=== PATIENT | female | born 1990 | race Caucasian/White ===

== ENCOUNTER 2017-03-12 12:47 | Emergency (ER) | payer SELFPAY ==
--- NOTE | 2017-03-12 15:44 | ED CLINICAL REPORT ---
Clinical Report - Physicians/Mid Levels [facility] [address] [place] [address] 03/12/2017 12:47 Patient: LOLI MADRID Time Seen: 13:19 Mar 12 2017. Arrived- By private vehicle. Historian- patient. HISTORY OF PRESENT ILLNESS Chief Complaint: PELVIC PAIN. This started last night and still present. The symptoms are described as mild. The patient has had pelvic pain. No vaginal discharge. She has had pain with urination and urgency of urination. The patient has had urinary frequency. Last normal menstrual period- jan 24. (patient with symptoms of dysuria, urgency and frequency since last night. Reports pelvic cramping since last night. Reports vaginal bleeding and spotting today. Patient is late on her menses, last menstrual period was January 24. Patient has not taken a home . Previous .). REVIEW OF SYSTEMS No nausea or headache. All systems otherwise negative, except as recorded above. PAST HISTORY Problems: Eczema. Asthma. Additional Surgeries: no known surgeries. Medications: Benadryl Oral. Allergies: Clindamycin.(vomiting). SOCIAL HISTORY Smoker- current status unknown. Alcohol use. No drug use. ADDITIONAL NOTES The nursing notes have been reviewed. PHYSICAL EXAM Vital Signs: 03/12/2017 13:03 BP: 103/50. HR: 96. RR: 18. O2 saturation: 96%. Temp: 98.1 F. Pain level now: 7/10. Appearance: Alert. HEENT: Normal external inspection. ENT: No hearing deficit. Neck: Neck supple. No lymphadenopathy. CVS: Heart sounds normal. Rhythm normal. Respiratory: No respiratory distress. Breath sounds normal. Abdomen: Soft and nontender. Bowel sounds normal. No abdominal tenderness. The bowel sounds are not abnormal. : A moderate amount of thick and white vaginal discharge present. No tenderness present on bimanual exam. No tenderness with movement of the cervix. (chaperoned with Shahrzad FOLEY). Skin: Skin warm. Neuro: Oriented X 3. LABS, X-RAYS, AND EKG Laboratory Tests: UA-Culture if indicated: (NICOLA: 03/12/2017 13:05) ( MsgRcvd 03/12/2017 13:49) Final results Test Result Flag Units (Reference) URINE COLOR YELLOW URINE APPEARANCE CLOUDY URINE GLUCOSE NEGATIVE (NEGATIVE) URINE BILIRUBIN ICTOTEST NEGATIVE (NEGATIVE) URINE KETONE 1+ (NEGATIVE) URINE SPECIFIC GRAVITY >= 1.030 (1.010-1.030) URINE PH 6.0 (5.0-8.0) URINE PROTEIN 3+ (NEGATIVE) URINE UROBILINOGEN 0.2 EU/dL (0.2-1.0) URINE NITRITE POSITIVE (NEGATIVE) URINE BLOOD 3+ (NEGATIVE) URINE LEUK ESTERASE TRACE (NEGATIVE) URINE RBC >100 rbc/hpf (0-1) URINE WBC >100 wbc/hpf (0-1) URINE EPITHELIAL CELLS 10-15 EPI/hpf (0-5) URINE BACTERIA FEW (1+) (NONE SEEN) URINE COMMENT CULTURE INDICATED URINE CULTURES ARE SET-UP BASED ON THE FOLLOWING CRITERIA:POSITIVE NITRITEPOSITIVE LEUKOCYTE ESTERASEGREATER THAN 10 WHITE BLOOD CELLSMODERATE (2+) OR GREATER BACTERIA Urine: (NICOLA: 03/12/2017 13:05) ( [facility] 03/12/2017 13:43) Final results Test Result Flag Units (Reference) URINE POSITIVE CBC w Diff: (NICOLA: 03/12/2017 13:47) ( [facility] 03/12/2017 14:24) Final results Test Result Flag Units (Reference) WHITE BLOOD COUNT 12.6 H K/uL (4.5-11.5) RED BLOOD COUNT 4.32 M/uL (4.00-5.20) HEMOGLOBIN 12.8 gm/dL (12.0-16.0) HEMATOCRIT 38.3 % (36.0-46.0) MEAN CELL VOLUME 89 fL (80-100) MEAN CORPUSCULAR HGB 30 pg (26-34) MEAN CORPUSCULAR HGB CONC 33 g/dL (31-37) RED CELL DISTRIBUTION WIDTH 14.3 % (11.6-14.8) PLATELET COUNT 316 K/uL (150-400) NEUTROPHIL % 81.3 H % (50-75) LYMPH % 11.1 L % (25-40) MONO % 6.0 % (3-14) EOSINOPHIL % 1.3 % (0-4) BASOPHIL % 0.3 % (0-2) Serum Quantitative: (NICOLA: 03/12/2017 14:10) ( DegRcvd 03/12/2017 14:53) Final results Test Result Flag Units (Reference) BETA HCG, QUANTITATIVE 21487 mIU/mL REFERENCE RANGE:Adult Males: <2 mIU/mLNon- Females: <6 mIU/mL Females:Approximate Approximate hCGGestational Age Range (mIU/mL) 0-1 week 0-501-2 weeks 40-3002-3 weeks 100-45692-9 weeks 500-80486-6 months 5,000-200,0002-3 months 10,000-100,0002nd trimester 3,000-50,0003rd trimester 1,000-50,000 Wet Prep: (NICOLA: 03/12/2017 14:30) ( [facility] 03/12/2017 14:46) Final results SPECIMEN DESCRIPTION: C Test Result Flag Units (Reference) WET MOUNT CLUE CELLS:: NONE EPITHELIAL CELLS: 3+ -- SOURCE?: CERVIX WHITE BLOOD CELLS: FEW TRICHOMONAS:: NONE -- YEAST:: NONE . PROGRESS AND PROCEDURES Course of Care: Patient with positive test, she was informed of such, and after pelvic exam was informed that an ultrasound was pending, patient departed from emergency department prior to ultrasound, without informing the staff. Can not exclude ecotpic, although less likely, molar , or other, as complete work up not done in ER. 03/12/2017 13:03 BP: 103/50. HR: 96. RR: 18. O2 saturation: 96%. Temp: 98.1 F. Pain level now: 04/23. Patient is stable. Patient/family counseled. CLINICAL IMPRESSION Vaginal Discharge Pelvic Pain. INSTRUCTIONS Follow-up: Follow up contact number. (Electronically signed by Enriqueta Lin P.A.-C 03/12/2017 16:54)
--- NOTE | 2017-03-12 15:44 | ED NURSING NOTES ---
Clinical Report - Nurses [facility] [address] [place] [address] 03/12/2017 12:47 Patient: LOLI MADRID TRIAGE Triage time 13:03. Acuity: LEVEL 4. Chief Complaint: VAGINAL BLEED and PAINFUL URINATION, URGENCY and FREQUENCY. Alert. No acute distress. OSCAR COMA SCORE: Oscar Coma Scale: 15- eyes open spontaneously (4); best verbal response- oriented x 4 (5); best motor response- obeys commands (6). --13:08 Shannan Shultz R.N. 13:03 03/12/17. BP: 103/50. HR: 96. RR: 18. O2 saturation: 96% on room air. Temp: 98.1 F. Pain level now: 04/23. --13:08 Shannan Shultz R.N. Weight: 54.4 kg stated. Height/Length: 63 inches Per Patient. BMI: 21.2. --13:05 Shannan Shultz R.N. Medications Benadryl Oral. --13:04 Shannan Shultz R.N. Medication/allergy information source: the patient. --13:08 Shannan Shultz R.N. Allergies Clindamycin.(vomiting) --13:04 Shannan Shultz R.N. History Arrived by private vehicle. Historian: patient. Accompanied by friend. Primary physician (none). This started last night. PAST MEDICAL HX: Last normal menstrual period- January. SOCIAL HX: Heavy tobacco smoker- less than 1 pack per day. Occasional alcohol use. History of drug use: marijuana. FALL RISK ASSESSMENT: Fall risk assessment completed. No fall risk identified. FUNCTIONAL ASSESSMENT: Functional assessment: no impairments noted. LEARNING NEEDS ASSESSMENT: The learning needs assessment revealed no barriers. --13:08 Shannan Shultz R.N. PROBLEMS: Eczema. Asthma. --13:05 Shannan Shultz R.N. ADDITIONAL SURGERIES: no known surgeries. Assessment GENERAL / NEURO / PSYCH: Alert. Oriented X 4. Appears in no acute distress. Patient appears calm and cooperative. RESPIRATORY: Respirations not labored. SKIN: Skin is warm and dry. --13:08 Shannan Shultz R.N. Interventions ID band on patient. To treatment room. --13:08 Shannan Shultz R.N. PHYSICAL ASSESSMENT 13:11 03/12/17. Ambulatory to room. Patient gowned. GENERAL / NEURO / PSYCH: Alert. Oriented X 4. Appears in no acute distress. RESPIRATORY: Respirations not labored. SKIN: Skin is warm and dry. --13:11 Shannan Shultz R.N. NURSING PROGRESS NOTES 13:12 03/12/17. Patient gowned. Head of bed elevated. Call light placed in reach. Side rails up x 1. Bed placed in lowest position. Brakes of bed on. --13:12 Shannan Shultz R.N. 13:12 03/12/17. :patient confirmed. Clean catch urine collected; sample sent to lab. Specimen labeled in the presence of the patient. --13:12 Shannan Shultz R.N. 13:46 POSITIVE per Lab. --13:46 Shannan Shultz R.N. 14:30. PELVIC EXAM: Pelvic exam performed by PA. Assisted by one nurse. Procedure: speculum and bimanual exam. Specimens collected and sent to lab: GC, chlamydia and wet prep. Status post-procedure: she was stable. Total time of assist / procedure: (5 min). ( specimens labeled in front of pt and sent to lab. pt tolerated exam well.). --14:34 Shahrzad Georges R.N. ( Pt. not in room. paged overhead.). --15:35 Jennifer Brasher, ER Tech1. DISPOSITION / DISCHARGE <<STRICKEN ENTRY-- Departure time: 1645. Condition at departure: stable. No learning barriers present. Discharge instructions provided and reviewed with the patient. Work note given. Patient verbalized understanding. Written instructions provided in Vietnamese. The patient was discharged home and unaccompanied at time of discharge. She left the Emergency Department ambulatory and via private vehicle. FALL RISK ASSESSMENT: Fall risk assessment completed. No fall risk identified. --17:28 Shannan Shultz R.N. --END STRIKE>> Charted On Wrong Patient --17:29 Shannan Shultz R.N. <<STRICKEN ENTRY-- 16:45 03/12/17. BP: 144/91. HR: 97. RR: 17. O2 saturation: 100% on room air. Pain level now: 02/21. --17:28 Shannan Shultz R.N. --END STRIKE>> Charted on wrong patient. --17:28 Shannan Shultz R.N. Departure time: 1535. The patient left the Emergency Department without completion of treatment. Gown found on bed. Patient left without signing form prior to leaving. --17:30 Shannan Shultz R.N. Locked/Released at 03/12/2017 17:31 by Shannan Shultz R.N.
--- NOTE | 2017-03-12 15:44 | ED ORDER SUMMARY ---
..... Patient: LOLI MADRID OrderSheet [facility] VisitID: [id number] [address] [place] [address] 26y, F Registration Date/Time: 03/12/2017 ORDER SHEET Weight: 54.4 kg (stated) Allergies: Clindamycin GENERAL ORDERS: Pelvic Exam Setup (13:19 03/12/2017 EKoroleva P.A.-C) (Ack 13:24 LNations ER Tech1) UA-Culture if indicated Urgent (13:23 03/12/2017 EKoroleva P.A.-C) (Ack 13:24 LNations ER Tech1) (14:27 ALawrence ER Tech1) Urine Urgent (13:23 03/12/2017 EKoroleva P.A.-C) (Ack 13:24 LNations ER Tech1) (14:27 ALawrence ER Tech1) Wet Prep (Cervix) (c) Urgent (13:39 03/12/2017 EKoroleva P.A.-C) (Ack 13:41 LNations ER Tech1) GC/Chlamydia (Cervix) (c) Urgent (13:39 03/12/2017 EKoroleva P.A.-C) (Ack 13:41 LNations ER Tech1) Type & Rh Urgent (13:47 03/12/2017 EKoroleva P.A.-C) (Ack 13:51 LNations ER Tech1) (14:25 ALawrence ER Tech1) CBC w Diff Urgent (13:47 03/12/2017 EKoroleva P.A.-C) (Ack 13:51 LNations ER Tech1) (14:25 ALawrence ER Tech1) Serum Quantitative Urgent (13:47 03/12/2017 EKoroleva P.A.-C) (Ack 13:51 LNations ER Tech1) (14:25 ALawrence ER Tech1) US OB 1st Trimester w Transvag (01/24/17) Urgent (13:47 03/12/2017 EKoroleva P.A.-C) (Ack 13:51 LNations ER Tech1) MEDICATION ORDERS: IV FLUIDS: ORDER SHEET NOTES: [Electronically signed by Enriqueta Lin P.A.-C (16:54 03/12/2017)] [Electronically signed by Shannan Shultz R.N. (17:31 03/12/2017)] [Electronically locked/signed by Shannan Shultz R.N. (17:31 03/12/2017)]
--- NOTE | 2017-03-12 15:44 | ED CLINICAL REPORT ---
Clinical Report - Physicians/Mid Levels [facility] [address] [place] [address] 03/12/2017 12:47 Patient: LOLI MADRID Time Seen: 13:19 Mar 12 2017. Arrived- By private vehicle. Historian- patient. HISTORY OF PRESENT ILLNESS Chief Complaint: PELVIC PAIN. This started last night and still present. The symptoms are described as mild. The patient has had pelvic pain. No vaginal discharge. She has had pain with urination and urgency of urination. The patient has had urinary frequency. Last normal menstrual period- jan 24. (patient with symptoms of dysuria, urgency and frequency since last night. Reports pelvic cramping since last night. Reports vaginal bleeding and spotting today. Patient is late on her menses, last menstrual period was January 24. Patient has not taken a home . Previous .). REVIEW OF SYSTEMS No nausea or headache. All systems otherwise negative, except as recorded above. PAST HISTORY Problems: Eczema. Asthma. Additional Surgeries: no known surgeries. Medications: Benadryl Oral. Allergies: Clindamycin.(vomiting). SOCIAL HISTORY Smoker- current status unknown. Alcohol use. No drug use. ADDITIONAL NOTES The nursing notes have been reviewed. PHYSICAL EXAM Vital Signs: 03/12/2017 13:03 BP: 103/50. HR: 96. RR: 18. O2 saturation: 96%. Temp: 98.1 F. Pain level now: 7/10. Appearance: Alert. HEENT: Normal external inspection. ENT: No hearing deficit. Neck: Neck supple. No lymphadenopathy. CVS: Heart sounds normal. Rhythm normal. Respiratory: No respiratory distress. Breath sounds normal. Abdomen: Soft and nontender. Bowel sounds normal. No abdominal tenderness. The bowel sounds are not abnormal. : A moderate amount of thick and white vaginal discharge present. No tenderness present on bimanual exam. No tenderness with movement of the cervix. (chaperoned with Shahrzad FOLEY). Skin: Skin warm. Neuro: Oriented X 3. LABS, X-RAYS, AND EKG Laboratory Tests: UA-Culture if indicated: (NICOLA: 03/12/2017 13:05) ( MsgRcvd 03/12/2017 13:49) Final results Test Result Flag Units (Reference) URINE COLOR YELLOW URINE APPEARANCE CLOUDY URINE GLUCOSE NEGATIVE (NEGATIVE) URINE BILIRUBIN ICTOTEST NEGATIVE (NEGATIVE) URINE KETONE 1+ (NEGATIVE) URINE SPECIFIC GRAVITY >= 1.030 (1.010-1.030) URINE PH 6.0 (5.0-8.0) URINE PROTEIN 3+ (NEGATIVE) URINE UROBILINOGEN 0.2 EU/dL (0.2-1.0) URINE NITRITE POSITIVE (NEGATIVE) URINE BLOOD 3+ (NEGATIVE) URINE LEUK ESTERASE TRACE (NEGATIVE) URINE RBC >100 rbc/hpf (0-1) URINE WBC >100 wbc/hpf (0-1) URINE EPITHELIAL CELLS 10-15 EPI/hpf (0-5) URINE BACTERIA FEW (1+) (NONE SEEN) URINE COMMENT CULTURE INDICATED URINE CULTURES ARE SET-UP BASED ON THE FOLLOWING CRITERIA:POSITIVE NITRITEPOSITIVE LEUKOCYTE ESTERASEGREATER THAN 10 WHITE BLOOD CELLSMODERATE (2+) OR GREATER BACTERIA Urine: (NICOLA: 03/12/2017 13:05) ( [facility] 03/12/2017 13:43) Final results Test Result Flag Units (Reference) URINE POSITIVE CBC w Diff: (NICOLA: 03/12/2017 13:47) ( [facility] 03/12/2017 14:24) Final results Test Result Flag Units (Reference) WHITE BLOOD COUNT 12.6 H K/uL (4.5-11.5) RED BLOOD COUNT 4.32 M/uL (4.00-5.20) HEMOGLOBIN 12.8 gm/dL (12.0-16.0) HEMATOCRIT 38.3 % (36.0-46.0) MEAN CELL VOLUME 89 fL (80-100) MEAN CORPUSCULAR HGB 30 pg (26-34) MEAN CORPUSCULAR HGB CONC 33 g/dL (31-37) RED CELL DISTRIBUTION WIDTH 14.3 % (11.6-14.8) PLATELET COUNT 316 K/uL (150-400) NEUTROPHIL % 81.3 H % (50-75) LYMPH % 11.1 L % (25-40) MONO % 6.0 % (3-14) EOSINOPHIL % 1.3 % (0-4) BASOPHIL % 0.3 % (0-2) Serum Quantitative: (NICOLA: 03/12/2017 14:10) ( PagRcvd 03/12/2017 14:53) Final results Test Result Flag Units (Reference) BETA HCG, QUANTITATIVE 30061 mIU/mL REFERENCE RANGE:Adult Males: <2 mIU/mLNon- Females: <6 mIU/mL Females:Approximate Approximate hCGGestational Age Range (mIU/mL) 0-1 week 0-501-2 weeks 40-3002-3 weeks 100-06793-1 weeks 500-07620-2 months 5,000-200,0002-3 months 10,000-100,0002nd trimester 3,000-50,0003rd trimester 1,000-50,000 Wet Prep: (NICOLA: 03/12/2017 14:30) ( [facility] 03/12/2017 14:46) Final results SPECIMEN DESCRIPTION: C Test Result Flag Units (Reference) WET MOUNT CLUE CELLS:: NONE EPITHELIAL CELLS: 3+ -- SOURCE?: CERVIX WHITE BLOOD CELLS: FEW TRICHOMONAS:: NONE -- YEAST:: NONE . PROGRESS AND PROCEDURES Course of Care: Patient with positive test, she was informed of such, and after pelvic exam was informed that an ultrasound was pending, patient departed from emergency department prior to ultrasound, without informing the staff. Can not exclude ecotpic, although less likely, molar , or other, as complete work up not done in ER. 03/12/2017 13:03 BP: 103/50. HR: 96. RR: 18. O2 saturation: 96%. Temp: 98.1 F. Pain level now: 04/23. Patient is stable. Patient/family counseled. CLINICAL IMPRESSION Vaginal Discharge Pelvic Pain. INSTRUCTIONS Follow-up: Follow up contact number. (Electronically signed by Enriqueta Lin P.A.-C 03/12/2017 16:54)
--- NOTE | 2017-03-12 15:44 | ED ORDER SUMMARY ---
..... Patient: LOLI MADRID OrderSheet [facility] VisitID: [id number] [address] [place] [address] 26y, F Registration Date/Time: 03/12/2017 ORDER SHEET Weight: 54.4 kg (stated) Allergies: Clindamycin GENERAL ORDERS: Pelvic Exam Setup (13:19 03/12/2017 EKoroleva P.A.-C) (Ack 13:24 LNations ER Tech1) UA-Culture if indicated Urgent (13:23 03/12/2017 EKoroleva P.A.-C) (Ack 13:24 LNations ER Tech1) (14:27 ALawrence ER Tech1) Urine Urgent (13:23 03/12/2017 EKoroleva P.A.-C) (Ack 13:24 LNations ER Tech1) (14:27 ALawrence ER Tech1) Wet Prep (Cervix) (c) Urgent (13:39 03/12/2017 EKoroleva P.A.-C) (Ack 13:41 LNations ER Tech1) GC/Chlamydia (Cervix) (c) Urgent (13:39 03/12/2017 EKoroleva P.A.-C) (Ack 13:41 LNations ER Tech1) Type & Rh Urgent (13:47 03/12/2017 EKoroleva P.A.-C) (Ack 13:51 LNations ER Tech1) (14:25 ALawrence ER Tech1) CBC w Diff Urgent (13:47 03/12/2017 EKoroleva P.A.-C) (Ack 13:51 LNations ER Tech1) (14:25 ALawrence ER Tech1) Serum Quantitative Urgent (13:47 03/12/2017 EKoroleva P.A.-C) (Ack 13:51 LNations ER Tech1) (14:25 ALawrence ER Tech1) US OB 1st Trimester w Transvag (01/24/17) Urgent (13:47 03/12/2017 EKoroleva P.A.-C) (Ack 13:51 LNations ER Tech1) MEDICATION ORDERS: IV FLUIDS: ORDER SHEET NOTES: [Electronically signed by Enriqueta Lin P.A.-C (16:54 03/12/2017)] [Electronically signed by Shannan Shultz R.N. (17:31 03/12/2017)] [Electronically locked/signed by Shannan Shultz R.N. (17:31 03/12/2017)]
--- NOTE | 2017-03-12 17:31 | ED DISCHARGE INSTRUCTIONS ---
Patient: LOLI MADRID General Instructions [facility] VisitID: [id number] [address] [place] [address] 26y, F Registration Date/Time: 03/12/2017 Vaginal Discharge Pelvic Pain. INSTRUCTIONS Follow-up: Follow up contact number. (Electronically signed by Enriqueta Lin P.A.-C 03/12/2017 16:54)
--- NOTE | 2017-03-12 17:31 | ED MED RECONCILIATION SUMMARY ---
Patient: LOLI MADRID Medication Reconciliation Report [facility] VisitID: [id number] [address] [place] [address] 26y, F Registration Date/Time: 03/12/2017 Weight: 54.4 kg Height/Length: 63 in. BMI: 21.3 ALLERGIES: Clindamycin The patient's Home Medications are listed below: THE FOLLOWING MEDICATIONS NEED TO BE RECONCILED: Benadryl Oral The source(s) of the original Home Medication information: patient The following Medications were given to the patient in the Emergency Department: None. The following Medications were prescribed to the patient: None.
--- NOTE | 2017-03-12 17:31 | ED DISCHARGE INSTRUCTIONS ---
Patient: LOLI MADRID General Instructions VisitID: [id number] [address] [place] [address] 26y, F Registration Date/Time: 03/12/2017 Vaginal Discharge Pelvic Pain. INSTRUCTIONS Follow-up: Follow up contact number. (Electronically signed by Enriqueta Lin P.A.-C 03/12/2017 16:54)
--- NOTE | 2017-03-12 17:31 | ED MAR SUMMARY ---
..... Medication Administration Record [facility] [address] [place], [place] [id number] Patient: LOLI MADRID Visit ID: [id number] 26y, F Weight: 54.4 kg Height/Length: 63 in BMI: 21.2 ALLERGIES: Clindamycin
--- NOTE | 2017-03-12 17:31 | ED MAR SUMMARY ---
..... Medication Administration Record [facility] [address] [place], [place] [id number] Patient: LOLI MADRID Visit ID: [id number] 26y, F Weight: 54.4 kg Height/Length: 63 in BMI: 21.2 ALLERGIES: Clindamycin
--- NOTE | 2017-03-12 17:31 | ED MED RECONCILIATION SUMMARY ---
Patient: LOLI MADRID Medication Reconciliation Report [facility] VisitID: [id number] [address] [place] [address] 26y, F Registration Date/Time: 03/12/2017 Weight: 54.4 kg Height/Length: 63 in. BMI: 21.3 ALLERGIES: Clindamycin The patient's Home Medications are listed below: THE FOLLOWING MEDICATIONS NEED TO BE RECONCILED: Benadryl Oral The source(s) of the original Home Medication information: patient The following Medications were given to the patient in the Emergency Department: None. The following Medications were prescribed to the patient: None.
== END 2017-03-12 15:48 | disposition left against medical advice (07) ==
LOC: ED SRH 12:47
DX: O99.89 Other specified diseases and conditions complicating pregnancy, childbirth and the puerperium (principal); N89.8 Other specified noninflammatory disorders of vagina; R10.2 Pelvic and perineal pain; Z3A.00 Weeks of gestation of pregnancy not specified
CPT/HCPCS: 90001; 90004; 90155; 90195; 90197; 90469; 91227; 91228; 93070; 95059